=== PATIENT | female | born 1965 | race Caucasian/White ===

== ENCOUNTER → 2023-10-28 13:53 | Outpatient (BNVA) | payer OTHER, SELFPAY | PROVIDERS: Visit Provider Physician Assistant | DX: S93.492D Sprain of other ligament of left ankle, subsequent encounter (principal); W10.9XXD Fall (on) (from) unspecified stairs and steps, subsequent encounter | CPT/HCPCS: 29515; 99204 ==

== ENCOUNTER → 2023-11-08 13:31 | Outpatient (BNVA) | payer OTHER, SELFPAY | PROVIDERS: Visit Provider Physician Assistant | DX: S93.492D Sprain of other ligament of left ankle, subsequent encounter (principal); W10.9XXD Fall (on) (from) unspecified stairs and steps, subsequent encounter | CPT/HCPCS: 99213 ==